=== PATIENT | female | born 1945 | race Caucasian/White ===

== ENCOUNTER 2022-09-27 11:05 | Emergency (ER) | payer MEDICARE, OTHER, SELFPAY ==
[2022-09-27 11:07] VITALS: BP 137/92; PULSE 90; RESP 16; TEMP 36.4; O2SAT 100
--- NOTE | 2022-09-27 11:24 | ED.VIS.LOWEX ---
HPI History of Present Illness HPI Narrative: -year-old female complaining of right heel pain primarily with walking. She fell on some steps 2 to 3 weeks ago so was actually doing well but now she has developed pain primarily with walking. Says she has been walking more recently. Denies any fever, redness. No puncture wound or other trauma since the fall. No prior history nor any prior foot or ankle surgery. Chief Complaint: Lower Extremity Injury Informant: patient and family Occured/Mechanism Mechanism/Context: Yes injury and Yes blunt trauma Onset/Context/Timing Onset: Weeks Context: Gradual Onset Timing: Continuous Quality of Pain: Dull and Aching Current Severity: Mild Maximum Severity: Mild Associated Symptoms Associated Symptoms: Negative for Parasthesia, Weakness or Loss of Funtion Narrative Narrative: Right heel pain primarily with walking. Trauma 3 weeks ago but the pain really started yesterday. Prior similar symptoms: No Recent Illness/Hospitalization: No PFSH PFSH Allergy/AdvReac Type Severity Reaction Status Date / Time No Known Allergies Allergy Verified 09/27/22 11:08 Social History Smoking Status: Never smoker ROS ROS ED ROS Narrative Denies recent illness other than a cold. Review of Systems ROS Unobtainable: Denies due to encephalopathy Constitutional Constitutional ED: Denies chills or fever(s) Eyes Eyes: Denies blurry vision ENT ENT ED: Denies ear pain Cardiovascular Cardiovascular: Denies chest pain Respiratory/Chest Respiratory/Chest: Reports cough Gastrointestinal Gastrointestinal: Denies abdominal pain Genitourinary Genitourinary ED: Denies dysuria or hematuria Musculoskeletal Musculoskeletal: Denies arthralgias Integumentary Denies abscess Neurologic Neurologic: Denies headache(s) Psychiatric Psychiatric: Denies anxiety or depression Endocrine Endocrinology: Denies polydipsia Hematologic/Lymphatic Hematologic/Lymphatic: Denies easy bleeding or easy bruising Allergic/Immunologic Allergic/Immunologic ED: Denies mouth swelling or tongue swelling EXAM Physical Exam Narrative Exam Narrative: 77-year-old female no acute distress vital signs stable afebrile. H EENT exam unremarkable. Lungs clear. Heart regular rhythm. Abdomen soft nontender. Moving all 4 extremities. Neurovascular intact specifically right lower leg there is no calf pain or tenderness. Achilles tendon intact. Dorsi and plantarflexion intact to the right ankle. Ankle is nontender nonswollen. Normal DP pulse. Foot is nontender. Very minimal tenderness to the heel itself with deep palpation. There is no redness or warmth. No swelling. No bony deformity. No signs of foreign body. Otherwise exam is normal. She is able to wiggle all her toes. Normal sensation. Const Vital Signs: 09/27/22 11:07 Temperature 97.5 F L Temperature Source Temporal Pulse Rate 90 Respiratory Rate 16 Blood Pressure 137/92 H Blood Pressure Mean 107 Pulse Ox 100 Oxygen Delivery Method Room Air Positive well nourished and well developed; Negative for obese, cachectic, contractures or unkempt General Appearance ED: well developed; Negative for unkempt, cachectic or contractures Nutritional Appearance: Negative for cachectic or obese HEENT Reports moist mucous membranes normocephalic and atraumatic; Negative for trauma or tenderness Eyes PERRL General Eye ED: Negative for other Neck full ROM and supple Thyroid: Negative for tender Lymph Lymphatic: Negative for other Chest Wall inspection of chest normal and palpation of chest normal Chest: Negative for other Resp normal respiratory effort, no retractions and clear to auscultation bilaterally Effort and Inspection: Negative for pain with movement Auscultation: Negative for rales, rhonchi or wheezes Cardio regular rate, regular rhythm, S1 normal heart sound, S2 normal heart sound and no murmurs Rate: Negative for bradycardia Rhythm: Negative for abnormal rhythm Bruits: Negative for other GI non-tender, non-distended and no masses Inspection: Negative for abdominal distention Auscultation: normoactive bowel sounds Palpation: soft; Negative for tender or guarding Bladder / Kidney Exam: No other Back/Spine no CVA tenderness General Back: Negative for CVA tenderness Cervical Spine: Negative for cervical spine tenderness Thoracic Spine / Upper Back: Negative for thoracic spinal tenderness Lumbar Spine / Lower Back: Negative for lumbar spinal tenderness or straight leg raise positive - left Extremity normal to inspection and full ROM Extremity Narrative: Minimal right heel tenderness. No redness or swelling. No bony deformity. Right foot neurovascular intact. Ankle normal range of motion. Calf and Achilles tendon normal. General Extremety ED: Negative for cyanosis or edema General Extremity: Negative for cyanosis or edema Neuro oriented x3, CN's II-XII intact bilaterally and moves all extremities Sensorium / Orientation: alert, oriented to person, oriented to place and oriented to time; Negative for orientation impaired, confused, lethargic or stuporous Motor Exam: strength 5/5 throughout Psych mental status grossly normal Appearance: Negative for unkempt Speech: No other Mood & Affect: Negative for anxious Skin no wounds Lesions: no lesions Rashes: no rashes Trauma: Negative for abrasion MDM MDM MDM Narrative Medical decision making narrative: 77-year-old with a heel injury 3 weeks ago now developing pain yesterday. Primarily with walking. May be a heel contusion from walking a lot. Might be heel spur. There is no signs of foreign body or infection. No signs of bony deformity. X-ray will be obtained. Labs are not necessary. Repeat exam unchanged. Patient doing well at 11:35 AM. We went over x-ray results. She does have a small heel spur. Most likely that is aggravated from her recent fall and or the amount of walking she has been doing. Ice to the area. She is on anti-inflammatories. And get additional heel support in her shoes. History & Record Review Discussion w/independent historian: Patient Discharge Plan Triage Chief Complaint: Lower Extremity Injury ED Provider: Alexis Tejada Dx/Rx/DC Orders Clinical Impression: Contusion of foot or heel Instructions: ED Contusion, Lower Extremity Primary Care Provider: [facility] ,Out of Referrals: Gaudencio Wells DPM [Med Staff - Active Staff] - As Needed [facility] ,Out of [Primary Care Provider] - Activity Restrictions/Additional Instructions: Pain in your heel is most likely either a heel contusion from a fall or a lot of walking or aggravation of the heel spur seen on x-ray. There is no broken bone. No infection and no foreign body. Ice to the area. Use your anti-inflammatory. Decrease your walking till the pain is better. Add additional heel support in your shoes likely 1 of those gel cups. You can get those at most of the shoe stores or sporting goods stores. Disposition Disposition: Home, Self Care
--- NOTE | 2022-09-27 11:25 | RAD_ITS ---
STUDY: X-RAY - RIGHT FOOT CLINICAL: Female, 77 years old. Heel pain and foot pain. No history of trauma. TECHNIQUE: 3 view(s) of the foot. COMPARISON: None. FINDINGS: There is a plantar calcaneal spur. Normal visualized subtalar, talonavicular, calcaneocuboid, tarsal and tarsometatarsal articulations. Normal metatarsi. 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 Normal tibial and fibular sesamoid bones. Normal interphalangeal joint of the great toe. Normal phalanges of the great toe. Normal second through fifth metatarsophalangeal joints. Normal interphalangeal joints and phalanges of the lesser toes. The soft tissue structures are unremarkable. RAD/Foot min 3 Views IMPRESSION: Plantar calcaneal spur. Degenerative changes at the first metatarsophalangeal joint. Electronically Signed: Matthew Fonseca MD at 12:03 EDT ,
[2022-09-27 11:38] VITALS: BP 156/78; PULSE 78; RESP 16; TEMP 36.6; O2SAT 99; BMI 30.6
== END 2022-09-27 11:56 | disposition home or self-care (01) ==
PROVIDERS: Emergency Provider Emergency Medicine; Visit Provider Emergency Medicine
DX: S90.31XA Contusion of right foot, initial encounter (principal)
CPT/HCPCS: 73630; 99282